=== PATIENT | female | born 2000 | race Two or more races ===

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

== ENCOUNTER 2019-12-01 19:51 | Emergency (ER) | payer SELFPAY ==
[2019-12-01 19:58] VITALS: BP 119/55
--- NOTE | 2019-12-01 21:48 | ER Document Report ---
HPI - HPI Patient complains to provider of: Skin rash Time Seen by Provider: 12/01/19 21:44 Onset: Other - Harlan months Onset/Duration: Worse Pain Level: Denies Context: Patient complains of skin rash to abdomen for the past 7 months that seems to have worsened recently. Patient denies any fever. Exacerbated by: Denies Relieved by: Denies Similar symptoms previously: No Recently seen / treated by doctor: No - ROS ROS below otherwise negative: Yes Systems Reviewed and Negative: Yes All other systems reviewed and negative - CONSTITUTIONAL Constitutional: DENIES: Fever - GASTROINTESTINAL Gastrointestinal: DENIES: Abdominal Pain - REPRODUCTIVE Reproductive: DENIES: : - DERM Skin Color: Normal Skin Problems: Rash Past Medical History - General Information source: Patient - Social History Smoking Status: Never Smoker Frequency of alcohol use: None Drug Abuse: None Occupation: food services coordinator Lives with: Family Family History: Reviewed & Not Pertinent Neurological Medical History: Reports: Hx Migraine Renal/ Medical History: Denies: Hx Peritoneal Dialysis Surgical Hx: Negative - Immunizations Immunizations up to date: Yes Hx Diphtheria, Pertussis, Tetanus Vaccination: Yes Vertical Provider Document - CONSTITUTIONAL Agree With Documented VS: Yes Exam Limitations: No Limitations General Appearance: WD/WN, No Apparent Distress - INFECTION CONTROL TRAVEL OUTSIDE OF THE [place] IN LAST 30 DAYS: No - HEENT HEENT: Atraumatic, Normocephalic - NECK Neck: Normal Inspection, Supple - RESPIRATORY Respiratory: Breath Sounds Normal, No Respiratory Distress - CARDIOVASCULAR Cardiovascular: Regular Rate, Regular Rhythm - GI/ABDOMEN Gastrointestinal: Abdomen Soft - MUSCULOSKELETAL/EXTREMETIES Musculoskeletal/Extremeties: MAEW - NEURO Level of Consciousness: Awake, Alert, Appropriate Motor/Sensory: No Motor Deficit - DERM Integumentary: Warm, Dry, Rash - Erythematous papular rash to the periumbilical area Course - Re-evaluation Re-evalutation: 12/01/19 21:45 Patient with what appears to be a belt buckle nickel dermatitis. Patient educated on management. - Vital Signs Vital signs: Temp Pulse Resp BP Pulse Ox 98.3 F 64 16 119/55 L 96 12/01/19 19:57 12/01/19 19:57 12/01/19 19:57 12/01/19 19:57 12/01/19 19:57 Discharge - Discharge Clinical Impression: Contact dermatitis Qualifiers: Contact dermatitis type: irritant Contact dermatitis trigger: metal Qualified Code(s): L24.81 - Irritant contact dermatitis due to metals Condition: Stable Disposition: HOME, SELF-CARE Instructions: Contact Dermatitis ([facility]), Topical Steroid Cream or Ointment ([facility]) Additional Instructions: Return immediately for any new or worsening symptoms Followup with your primary care provider, call tomorrow to make a followup appointment Avoid metal belt dorian touching the skin Prescriptions: Triamcinolone Acetonide [Aristocort 0.1% Cream] 1 applic TP TID #60 gm Referrals: MAYANK SOOD MD [NO LOCAL MD] - Follow up as needed
== END 2019-12-01 22:00 | disposition home or self-care (01) ==
LOC: ER 19:51
DX: T56.891A Toxic effect of other metals, accidental (unintentional), initial encounter (principal); L24.81 Irritant contact dermatitis due to metals
CPT/HCPCS: 99282